=== PATIENT | female | born 1935 | race Caucasian/White ===

== ENCOUNTER 2019-12-01 09:14 | Inpatient (IN) | payer MEDICARE, SELFPAY ==
[2019-12-01] VITALS (14 sets, daily range): BP systolic 148–167; BP diastolic 87–112; PULSE 70–122; RESP 16–24; TEMP 36.4–36.8; O2SAT 87–98; BMI 23.5
--- NOTE | 2019-12-01 09:37 | CT_ITS ---
WS: [id number] CT HEAD NONCONTRAST HISTORY: AMS TECHNIQUE: Contiguous axial imaging performed through the brain in 2.5 mm imaging. Bone and soft tiss ue windows. Sagittal and coronal reformats reviewed. All CT scans at [facility] use at le ast one of these dose optimization techniques: automated exposure control; mA and/or kV adjustment pe r patient size (includes targeted exams where dose is matched to clinical indication); or iterative r econstruction. DLP: 566.59 mGy.cm COMPARISON: None available. No acute intracranial hemorrhage, midline shift or mass effect. There is a partially calcified mass in the posterior fossa. Mass measures 1.3 x 0.8 cm and is along t he inferior fourth ventricle abutting the medulla and the inferior cerebellum. There is moderate dila tation of the ventricular system which is probably due to this partially obstructing mass. Ventricles: Ventricles are dilated. Bilateral temporal lobe dilatation. Fourth ventricle and third v entricle are prominent. Paranasal sinuses: As visualized are clear. Mastoid air cells: Well pneumatized. Calvarium and scalp: Skull is intact with no soft tissue edema or swelling. CT/CT head wo con* [id number] IMPRESSION: 1. 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 Mass measures 1.3 x 0.8 cm. Differential includes metastasis, hemangioblastoma and astrocytoma. 2. Mild atrophy and chronic ischemic disease.
--- NOTE | 2019-12-01 09:37 | XR_ITS ---
WS: [id number] Portable AP upright chest, 12/01/2019 Clinical Data: chest pain Comparison: None. Findings: There is a possible cavitary lesion in the midportion of the right lung. The left lung is c lear. The heart is normal. The pulmonary vascularity is increased. No pneumonia or pneumothorax is se en. The aortic arch and descending aorta are tortuous. There are monitor leads on the chest wall. XR/XR chest 1V portable [id number] Impression: 1. Possible cavitary lesion in the right upper lobe which could represent a pne umatocele or possible lung abscess. 2. Recommend repeat PA and lateral chest. 3. Atherosclerosis.
--- NOTE | 2019-12-01 09:38 | ECG_ITS ---
Measurements Intervals [place] Rate: 116 P: 69 CT: 171 QRS: -2 QRSD: 93 T: 29 QT: 381 QTc: 529 SINUS TACHYCARDIA POSSIBLE LEFT ATRIAL ENLARGEMENT [-0.1mV P WAVE IN V1/V2] MODERATE ST DEPRESSION [0.05+ mV ST DEPRESSION] INTERPRETATION BASED ON A DEFAULT AGE OF 40 YEARS No previous ECG available for comparison Electronically Signed On 12-01-2019 20:56:59 CDT by Nilo Ladd M.D. [id number] f
--- NOTE | 2019-12-01 09:38 | W.ED.GENADLT ---
HPI - General Adult General: Chief complaint: Shortness of Breath/Dyspnea Stated complaint: SOB/ HTN Time Seen by Provider: 12/01/19 09:16 Source: patient and family Mode of arrival: EMS Limitations: no limitations History of Present Illness: HPI narrative: Patient is an 84-year-old female who presents to ED today via EMS for complaints of shortness of breath. EMS states they initially got a call for a possible stroke however upon arrival patient's NIH scale was 0. Upon their assessment they noted patient to be satting at 85% on room air and she was noted to be hypertensive. Upon arrival patient tells me she has no past medical history-admittedly states she has not been to the doctor in over a decade. She takes no medications. She seems to be alert and oriented. During physical examination and after removing patient's clothing her perineum is extremely unhygienic and covered in maggots. 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 After speaking to the son whom patient resides with, he tells me that patient is normally ambulatory and can complete her own ADLs however over the past 2 to 3 weeks she has became increasingly weak, altered, often refuses to bathe, eat, drink, and is now defecating and urinating on herself frequently. Patient is her own guardian. Onset (ago): week(s) Associated symptoms: Reports dyspnea; Deny chest pain, headache(s), nausea, rash, palpitations, syncope or vomiting Review of Systems Const: Denies: fever(s), chills or body aches Eyes: Denies: change in vision, blurry vision, photophobia or seeing flashes ENMT: Denies: throat pain, enlarged tonsils or odynophagia Card: Denies: chest pain, palpitations, irregular heart rhythm, edema, lightheadedness, syncope or pre-syncope Resp: Reports: dyspnea; Denies: productive cough, non-productive cough or chest congestion GI: Denies: abdominal pain, nausea, vomiting or diarrhea : Denies: flank pain, difficulty voiding, dysuria, urinary frequency or urinary urgency Musc: Denies: neck pain or back pain Skin/Breast: Denies: rash Neuro: Denies: headache(s), numbness in extremities, weakness in extremities or sensory changes PFS ED PFSH: Social History Smoking and tobacco status: former smoker Physical Exam Const: COMMON NORMALS: patient oriented x3 and alert GENERAL APPEARANCE: cooperative NUTRITIONAL APPEARANCE: cachectic ORIENTATION/CONSCIOUSNESS: Yes awake, Yes oriented to person, Yes oriented to place and Yes oriented to time OTHER: poor hygiene; patient has fecal material and maggots noted on her HENMT: COMMON NORMALS: normocephalic and atraumatic HEAD & SCALP: normocephalic and atraumatic Chest: COMMONS NORMALS: normal inspection of the chest and normal palpation of entire chest wall Resp: COMMON NORMALS: normal respiratory effort and clear to auscultation bilaterally AUSCULTATION: clear to auscultation bilaterally Cardio: COMMON NORMALS: regular rate and regular rhythm RATE: regular rate RHYTHM: regular rhythm GI: COMMON NORMALS: Normal to inspection, nondistended, normoactive bowel sounds present, Soft to palpation, non-tender, No hepatosplenomegaly present and no masses PALPATION: Yes Soft to palpation and Yes No hepatosplenomegaly present : OTHER: uterine prolapse; fecal material and maggots noted throughout perineum Back/Pelvis: OTHER: skin breakdown and stage I decub ulcer present to sacral region Extremity: COMMON NORMALS: normal to inspection Neuro: COMMON NORMALS: patient oriented x3 SENSORIUM/ORIENTATION: Yes alert, Yes oriented to person, Yes oriented to place and Yes oriented to time Skin: COMMON NORMALS: no rashes or lesions noted GENERAL SKIN EXAM: no rashes or lesions noted Course ED course: RN alerted me that pt is complaining of L hip pain; will obtain imaging of hip/pelvis Consultations: Consultation #1: Dr. Carr (Dr. Campbell requested we speak to him regarding uterine prolapse) will consult on patient while in hospital. Vital Signs: Vital signs: Vital Signs Temperature 97.6 F 12/01/19 09:16 Pulse Rate 112 H 12/01/19 13:45 Respiratory Rate 18 12/01/19 13:45 Blood Pressure 153/94 12/01/19 13:45 Pulse Oximetry 93 12/01/19 13:45 MDM - General Adult MDM Narrative: Medical decision making narrative: Patient has been discussed with Dr. Ahumada who agrees with evaluation from the ED and agrees with plan for admission. She is uroseptic from UTI with multi organ involvement. She has been given fluids/IV abx here. Case management will work with her and family for plan following discharge from hospital as pt is her own guardian and does not have medicaid/medicare. Dr. Ahumada and I have spoken to Dr. Campbell who will admit patient. I have consulted with Dr. Carr for evaluation of her uterine prolapse. Lab Data: Labs: Lab Results 12/01/19 12/01/19 12/01/19 Range/Units 09:42 10:07 10:07 WBC 18.1 H (4.0-10.0) 10^3/ uL RBC 5.75 H (4.1-5.3) 10^6/u L Hgb 18.2 H (11.5-15.3) g/dL Hct 55.9 H (37.0-47.0) % MCV 97.2 (81-99) fL MCH 31.7 (28.0-34.0) pg MCHC 32.6 (30.0-36.0) g/dL RDW 15.2 H (12.1-15.1) % Plt Count 233 (130-400) 10^3/c mm MPV 11.4 H (7.4-10.4) fL Neut % (Auto) 87.6 % Lymph % (Auto) 4.8 % [place] % (Auto) 6.6 % Eos % (Auto) 0.1 % Baso % (Auto) 0.3 % Neut # (Auto) 15.8 H (1.8-7.7) 10^3/u L Lymph # (Auto) 0.9 (0.8-4.8) 10^3/u L [place] # (Auto) 1.2 H (0.2-0.9) 10^3/u L Eos # (Auto) 0.0 (0.0-0.8) 10^3/u L Baso # (Auto) 0.1 (0.0-0.1) 10^3/u L Nucleated RBC % (a uto) 0 % Nucleated RBCs # 0.0 /100WBC Specimen Type Arterial Sample Site Brachial, left ABG pH 7.50 H (7.35-7.45) ABG pCO2 30.1 L (35-45) mmHg ABG pO2 73.6 L (80.0-100.0) mmH g ABG HCO3 23.3 (22-26) mmol/L ABG O2 Saturation 95.6 ABG Base Excess 1.3 (-2.0-2.0) mmol/ L Nicholas Test Pos A-a O2 Gradient 87.1 H (5-10) mmHg Hematocrit 55.0 H (37-47) % Hgb O2 Saturation 94.3 L (95-100) % Carboxyhemoglobin 0.8 (0.4-20.1) %THgb Methemoglobin 0.6 (0.4-1.5) % Total Hemoglobin 17.9 H (12-16) g/dL Sodium 142.0 140 (131-143) mmol/L Potassium 3.7 3.6 (3.5-5.0) mmol/L Glucose 128.0 H 130 H (70-115) mg/dL Ionized Calcium 1.5 H (1.1-1.4) mmol/L O2 Delivery Device Nc O2 Liters/Min 2.0 % FiO2 28.0 % Campaign Management Specialist ID caak Chloride 98 (98-107) mmol/L Carbon Dioxide 25 (22-29) mmol/L Anion Gap 20.6 H (5-19) BUN 44 H (8-23) mg/dL Creatinine 0.7 (0.5-0.9) mg/dL GFR Calculation Fighter Pilot Calculated Osmolal ity 290 (285-295) mOsm/k g Lactate (0.5-2.2) mmol/L Calcium 12.7 H (8.5-10.5) mg/dL Magnesium 2.6 H (1.7-2.3) mg/dL Total Bilirubin 1.7 H (0.15-1.2) mg/dL AST 18 (0-32) U/L ALT 8 (0-33) U/L Alkaline Phosphata se 128 H (35-105) IU/L Creatine Kinase 100 (26-192) U/L Troponin T Baselin e (0-10) ng/L Troponin T 120 Min [place] (0-10) ng/L Delta Troponin T (0-10) ABS# Total Protein 8.2 (6.6-8.7) g/dL Albumin 4.0 (3.5-5.2) g/dL Globulin 4.2 (1.3-4.6) g/dL Urine Color (Yellow) Urine Appearance (CLEAR) Urine pH (5-7) Ur Specific Gravit y (1.005-1.030) Urine Protein (Negative) Urine Glucose (UA) (Normal) Urine Ketones (Negative) Urine Blood (Negative) Urine Nitrate (Negative) Urine Bilirubin (NEGATIVE) Urine Urobilinogen (Negative) mg/dL Ur Leukocyte Lucinda ase (Negative) Urine RBC (0-2) /hpf Urine WBC (0-5) /hpf Ur Squamous Epith Cells (0-5) Urine Bacteria (NONE) Urine Opiates Scre en (Negative) ng/mL Ur Barbiturates Sc reen (Negative) ng/mL Ur Phencyclidine S crn (Negative) ng/mL Ur Amphetamines Sc reen (Negative) ng/mL U Benzodiazepines Scrn (Negative) ng/mL Urine Cocaine Scre en (Negative) ng/mL U Marijuana (THC) Screen (Negative) ng/mL 12/01/19 12/01/19 12/01/19 Range/Units 10:07 10:07 12:27 WBC (4.0-10.0) 10^3/ uL RBC (4.1-5.3) 10^6/u L Hgb (11.5-15.3) g/dL Hct (37.0-47.0) % MCV (81-99) fL MCH (28.0-34.0) pg MCHC (30.0-36.0) g/dL RDW (12.1-15.1) % Plt Count (130-400) 10^3/c mm MPV (7.4-10.4) fL Neut % (Auto) % Lymph % (Auto) % [place] % (Auto) % Eos % (Auto) % Baso % (Auto) % Neut # (Auto) (1.8-7.7) 10^3/u L Lymph # (Auto) (0.8-4.8) 10^3/u L [place] # (Auto) (0.2-0.9) 10^3/u L Eos # (Auto) (0.0-0.8) 10^3/u L Baso # (Auto) (0.0-0.1) 10^3/u L Nucleated RBC % (a uto) % Nucleated RBCs # /100WBC Specimen Type Sample Site ABG pH (7.35-7.45) ABG pCO2 (35-45) mmHg ABG pO2 (80.0-100.0) mmH g ABG HCO3 (22-26) mmol/L ABG O2 Saturation ABG Base Excess (-2.0-2.0) mmol/ L Nicholas Test A-a O2 Gradient (5-10) mmHg Hematocrit (37-47) % Hgb O2 Saturation (95-100) % Carboxyhemoglobin (0.4-20.1) %THgb Methemoglobin (0.4-1.5) % Total Hemoglobin (12-16) g/dL Sodium (131-143) mmol/L Potassium (3.5-5.0) mmol/L Glucose (70-115) mg/dL Ionized Calcium (1.1-1.4) mmol/L O2 Delivery Device O2 Liters/Min % FiO2 % Campaign Management Specialist ID Chloride (98-107) mmol/L Carbon Dioxide (22-29) mmol/L Anion Gap (5-19) BUN (8-23) mg/dL Creatinine (0.5-0.9) mg/dL GFR Calculation Calculated Osmolal ity (285-295) mOsm/k g Lactate 2.6 H (0.5-2.2) mmol/L Calcium (8.5-10.5) mg/dL Magnesium (1.7-2.3) mg/dL Total Bilirubin (0.15-1.2) mg/dL AST (0-32) U/L ALT (0-33) U/L Alkaline Phosphata se (35-105) IU/L Creatine Kinase (26-192) U/L Troponin T Baselin e 35 H (0-10) ng/L Troponin T 120 Min [place] 34.88 H (0-10) ng/L Delta Troponin T -0.12 L (0-10) ABS# Total Protein (6.6-8.7) g/dL Albumin (3.5-5.2) g/dL Globulin (1.3-4.6) g/dL Urine Color (Yellow) Urine Appearance (CLEAR) Urine pH (5-7) Ur Specific Gravit y (1.005-1.030) Urine Protein (Negative) Urine Glucose (UA) (Normal) Urine Ketones (Negative) Urine Blood (Negative) Urine Nitrate (Negative) Urine Bilirubin (NEGATIVE) Urine Urobilinogen (Negative) mg/dL Ur Leukocyte Lucinda ase (Negative) Urine RBC (0-2) /hpf Urine WBC (0-5) /hpf Ur Squamous Epith Cells (0-5) Urine Bacteria (NONE) Urine Opiates Scre en (Negative) ng/mL Ur Barbiturates Sc reen (Negative) ng/mL Ur Phencyclidine S crn (Negative) ng/mL Ur Amphetamines Sc reen (Negative) ng/mL U Benzodiazepines Scrn (Negative) ng/mL Urine Cocaine Scre en (Negative) ng/mL U Marijuana (THC) Screen (Negative) ng/mL 12/01/19 12/01/19 Range/Units 12:42 12:42 WBC (4.0-10.0) 10^3/ uL RBC (4.1-5.3) 10^6/u L Hgb (11.5-15.3) g/dL Hct (37.0-47.0) % MCV (81-99) fL MCH (28.0-34.0) pg MCHC (30.0-36.0) g/dL RDW (12.1-15.1) % Plt Count (130-400) 10^3/c mm MPV (7.4-10.4) fL Neut % (Auto) % Lymph % (Auto) % [place] % (Auto) % Eos % (Auto) % Baso % (Auto) % Neut # (Auto) (1.8-7.7) 10^3/u L Lymph # (Auto) (0.8-4.8) 10^3/u L [place] # (Auto) (0.2-0.9) 10^3/u L Eos # (Auto) (0.0-0.8) 10^3/u L Baso # (Auto) (0.0-0.1) 10^3/u L Nucleated RBC % (a uto) % Nucleated RBCs # /100WBC Specimen Type Sample Site ABG pH (7.35-7.45) ABG pCO2 (35-45) mmHg ABG pO2 (80.0-100.0) mmH g ABG HCO3 (22-26) mmol/L ABG O2 Saturation ABG Base Excess (-2.0-2.0) mmol/ L Nicholas Test A-a O2 Gradient (5-10) mmHg Hematocrit (37-47) % Hgb O2 Saturation (95-100) % Carboxyhemoglobin (0.4-20.1) %THgb Methemoglobin (0.4-1.5) % Total Hemoglobin (12-16) g/dL Sodium (131-143) mmol/L Potassium (3.5-5.0) mmol/L Glucose (70-115) mg/dL Ionized Calcium (1.1-1.4) mmol/L O2 Delivery Device O2 Liters/Min % FiO2 % Campaign Management Specialist ID Chloride (98-107) mmol/L Carbon Dioxide (22-29) mmol/L Anion Gap (5-19) BUN (8-23) mg/dL Creatinine (0.5-0.9) mg/dL GFR Calculation Calculated Osmolal ity (285-295) mOsm/k g Lactate (0.5-2.2) mmol/L Calcium (8.5-10.5) mg/dL Magnesium (1.7-2.3) mg/dL Total Bilirubin (0.15-1.2) mg/dL AST (0-32) U/L ALT (0-33) U/L Alkaline Phosphata se (35-105) IU/L Creatine Kinase (26-192) U/L Troponin T Baselin e (0-10) ng/L Troponin T 120 Min [place] (0-10) ng/L Delta Troponin T (0-10) ABS# Total Protein (6.6-8.7) g/dL Albumin (3.5-5.2) g/dL Globulin (1.3-4.6) g/dL Urine Color Yellow (Yellow) Urine Appearance Cloudy (CLEAR) Urine pH 5 (5-7) Ur Specific Gravit y 1.025 (1.005-1.030) Urine Protein Neg (Negative) Urine Glucose (UA) Norm (Normal) Urine Ketones 1+ H (Negative) Urine Blood 3+ H (Negative) Urine Nitrate Negative (Negative) Urine Bilirubin 1+ H (NEGATIVE) Urine Urobilinogen 1 H (Negative) mg/dL Ur Leukocyte Lucinda ase 2+ H (Negative) Urine RBC 10-15 H (0-2) /hpf Urine WBC 40-55 H (0-5) /hpf Ur Squamous Epith Cells 0-4 H (0-5) Urine Bacteria 3+ H (NONE) Urine Opiates Scre en Negative (Negative) ng/mL Ur Barbiturates Sc reen Negative (Negative) ng/mL Ur Phencyclidine S crn Negative (Negative) ng/mL Ur Amphetamines Sc reen Negative (Negative) ng/mL U Benzodiazepines Scrn Negative (Negative) ng/mL Urine Cocaine Scre en Negative (Negative) ng/mL U Marijuana (THC) Screen Negative (Negative) ng/mL Imaging Data^: CXR: Radiologist's impression: [address] [address] XRay Report Signed Patient: Mirta Jj Unit #: [id number] : 1935 Age/Sex: 84 / F ADM Date: 12/01/19 Loc: ER Room/Bed: Attending Dr: Ordering Provider/Ordering MD: Lacy Venegas Date of Service: 12/01/19 Procedure(s): XR chest 2V* [id number] Accession Number(s): [id number] Report Number: [id number] WS: [id number] Chest 2 views, 12/01/2019, 1054 hours Clinical Data: repeat imaging per radiology Comparison: Portable chest, 12/01/2019, 0957 hours Findings: Repeat x-ray shows there is a cavitary lesion in the midportion of the right lung measuring 3.2 cm. It has a thin wall. This could represent a pneumatocele, a cavitary tumor, lung cyst, infectious cyst or less likely a lung abscess or metastatic lesion. The pulmonary vascularity is not increased. No pneumonia or pneumothorax is seen. Left lung is normal. The aortic arch and descending aorta show calcification and tortuosity. XR/XR chest 2V* 02261 Impression: 1. Cavitary lesion in midportion of right lung. 2. Atherosclerosis. Dictated By: Marie Walton MD Signed By: Marie Walton MD Signed Date/Time: 12/01/19 1107 DD/ 1103 L hip/pelvis XR: Radiologist's impression: [address] [address] XRay Report Signed Patient: Mirta Jj Unit #: [id number] : 1935 Age/Sex: 84 / F ADM Date: 12/01/19 Loc: ER Room/Bed: Attending Dr: Ordering Provider/Ordering MD: Lacy Venegas Date of Service: 12/01/19 Procedure(s): XR hip LT 2-3V wo/w pel* 96013 Accession Number(s): [id number] Report Number: [id number] WS: [id number] Left hip, AP and frog leg, AP pelvis, 12/01/2019 Clinical Data: pain Comparison: None. Findings: No fractures or dislocations are seen. The hip joint is intact. The soft tissues are not remarkable. The adjacent pelvis is normal. XR/XR hip LT 2-3V wo/w pel* [id number] Impression: Negative left hip and pelvis. Dictated By: Marie Walton MD Signed By: Marie Walton MD Signed Date/Time: 12/01/19 1310 DD/ 1309 CT Head: Radiologist's impression: [place] [address] CT Scan Report Signed Patient: Mirta Jj Unit #: [id number] : 1935 Age/Sex: 84 / F ADM Date: 12/01/19 Loc: ER Room/Bed: Attending Dr: Ordering Provider/Ordering MD: Lacy Venegas Date of Service: 12/01/19 Procedure(s): CT head wo con* [id number] Accession Number(s): [id number] Report Number: [id number] WS: [id number] CT HEAD NONCONTRAST HISTORY: AMS TECHNIQUE: Contiguous axial imaging performed through the brain in 2.5 mm imaging. Bone and soft tissue windows. Sagittal and coronal reformats reviewed. All CT scans at [facility] use at least one of these dose optimization techniques: automated exposure control; mA and/or kV adjustment per patient size (includes targeted exams where dose is matched to clinical indication); or iterative reconstruction. DLP: 566.59 mGy.cm COMPARISON: None available. No acute intracranial hemorrhage, midline shift or mass effect. There is a partially calcified mass in the posterior fossa. Mass measures 1.3 x 0.8 cm and is along the inferior fourth ventricle abutting the medulla and the inferior cerebellum. There is moderate dilatation of the ventricular system which is probably due to this partially obstructing mass. Ventricles: Ventricles are dilated. Bilateral temporal lobe dilatation. Fourth ventricle and third ventricle are prominent. Paranasal sinuses: As visualized are clear. Mastoid air cells: Well pneumatized. Calvarium and scalp: Skull is intact with no soft tissue edema or swelling. CT/CT head wo con* [id number] IMPRESSION: 1. 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 Mass measures 1.3 x 0.8 cm. Differential includes metastasis, hemangioblastoma and astrocytoma. 2. Mild atrophy and chronic ischemic disease. Dictated By: Irene Almaguer DO Signed By: Irene Almaguer DO Signed Date/Time: 12/01/19 1125 DD/ 1111 Discharge Plan Discharge Patient Disposition: Admitted As Inpatient Admit Provider: Kay Campbell Clinical Impression: Acute cystitis with hematuria, Cavitary lesion of lung, Infestation by maggots, Uterine prolapse, Hypoxia Sepsis Qualifiers: Sepsis type: sepsis due to unspecified organism Sepsis acute organ dysfunction status: with acute organ dysfunction Severe sepsis acute organ dysfunction type: acute renal failure Acute renal failure type: unspecified Condition: Stable Coding Level of Care Code ED Piling Cutter for Chg Fwd Exam Comprehensive
[2019-12-01 09:54] LABS: ABG PCO2 30.1 mmHg (35-45); Alveolar-Arterial Oxygen Gradi 87.1 mmHg (5-10); Base Excess ABG 1.3 mmol/L (-2.0-2.0); Blood Gas Allen Test Pos; Blood Gas Sample Site Brachial, left; Blood Gas Sample Type Arterial; Carboxyhemoglobin 0.8 %THgb (0.4-20.1); HCO3 ABG 23.3 mmol/L (22-26); HGB O2 Sat 94.3 % (95-100); Ionized Calcium Level - ABG 1.5 mmol/L (1.1-1.4); Methemoglobin 0.6 % (0.4-1.5); Oxygen Device NC; Oxygen Saturation ABG 95.6; PO2 ABG 73.6 mmHg (80.0-100.0); Potassium Level - ABG 3.7 mmol/L (3.5-5.0); Total Hemoglobin 17.9 g/dL (12-16)
[2019-12-01 10:21] LABS: Basophils # 0.1 10^3/uL (0.0-0.1); Basophils % 0.3 %; Eosinophils % 0.1 %; Hematocrit 55.9 % (37.0-47.0); Hemoglobin 18.2 g/dL (11.5-15.3); Lymphocytes # 0.9 10^3/uL (0.8-4.8); Lymphocytes % 4.8 %; Mean Corpuscular HGB Conc 32.6 g/dL (30.0-36.0); Mean Corpuscular Hemoglobin 31.7 pg (28.0-34.0); Mean Corpuscular Volume 97.2 fL (81-99); Mean Platelet Volume 11.4 fL (7.4-10.4); Monocytes # 1.2 10^3/uL (0.2-0.9); Monocytes % 6.6 %; Neutrophils # 15.8 10^3/uL (1.8-7.7); Neutrophils % 87.6 %; Nucleated Red Blood Cells % 0 %; Platelet Count 233 10^3/cmm (130-400); Red Blood Count 5.75 10^6/uL (4.1-5.3); Red Cell Distribution Width 15.2 % (12.1-15.1); White Blood Count 18.1 10^3/uL (4.0-10.0)
--- NOTE | 2019-12-01 10:37 | XR_ITS ---
WS: [id number] Chest 2 views, 12/01/2019, 1054 hours Clinical Data: repeat imaging per radiology Comparison: Portable chest, 12/01/2019, 0957 hours Findings: Repeat x-ray shows there is a cavitary lesion in the midportion of the right lung measurin g 3.2 cm. It has a thin wall. This could represent a pneumatocele, a cavitary tumor, lung cyst, infec tious cyst or less likely a lung abscess or metastatic lesion. The pulmonary vascularity is not incre ased. No pneumonia or pneumothorax is seen. Left lung is normal. The aortic arch and descending aorta show calcification and tortuosity. XR/XR chest 2V* [id number] Impression: 1. Cavitary lesion in midportion of right lung. 2. Atherosclerosis.
[2019-12-01 10:40] LABS: Alanine Aminotransferase 8 U/L (0-33); Alkaline Phosphatase 128 IU/L (35-105); Anion Gap 20.6 (5-19); Aspartate Amino Transferase 18 U/L (0-32); Blood Urea Nitrogen 44 mg/dL (8-23); Carbon Dioxide 25 mmol/L (22-29); Chloride 98 mmol/L (98-107); Creatine Phosphokinase 100 U/L (26-192); Globulin 4.2 g/dL (1.3-4.6); Glucose 130 mg/dL (65-115); Magnesium 2.6 mg/dL (1.7-2.3); Osmolality Calculated 290 mOsm/kg (285-295); Potassium 3.6 mmol/L (3.5-5.1); Sodium 140 mmol/L (136-145); Total Bilirubin 1.7 mg/dL (0.15-1.2); Total Protein 8.2 g/dL (6.6-8.7)
[2019-12-01 10:42] LABS: Lactate (Lactic Acid level) 2.6 mmol/L (0.5-2.2); Troponin(5th) Baseline 35 ng/L (0-10)
--- NOTE | 2019-12-01 10:52 | DCPLANNER ---
partnership manager was asked to speak with patients family about medicaid and medicare. partnership manager spoke with Xi, daughter -in law [phone] - who states that patient does not have insurance at this time. partnership manager spoke with patients son, he stated that high risk case manager would need to speak with Xi. partnership manager also asked patient if high risk case manager could speak with Xi, and patient stated that high risk case manager could speak with Xi about her care. partnership manager spoke with Xi, she stated that she does not know how much money that patient received a month. partnership manager asked patient and her son how much money patient receives, patient and son, did not know the information. partnership manager gave daughter the information for patient to call for medicare with Social Security. partnership manager called [employer], Dar Keen, to speak with patient about medicaid. partnership manager was told that if patient will tell Dar that it is ok to speak with her daughter in law that he can speak with her about patients medicaid application. partnership manager transferred call into patients room, patient spoke with Dar and patient stated that he could speak with Xi.
[2019-12-01 11:16] LABS: Calcium 12.7 mg/dL (8.5-10.5)
--- NOTE | 2019-12-01 11:38 | ECG_ITS ---
Measurements Intervals [place] Rate: 114 P: 58 SD: 148 QRS: 27 QRSD: 85 T: 23 QT: 377 QTc: 521 SINUS TACHYCARDIA POSSIBLE LEFT ATRIAL ENLARGEMENT [-0.1mV P WAVE IN V1/V2] MODERATE ST DEPRESSION [0.05+ mV ST DEPRESSION] No previous ECG available for comparison Electronically Signed On 12-01-2019 21:05:48 CDT by Nilo Ladd M.D. [id number] f
[2019-12-01] MEDS: sodium chloride 0.9% 1,000 ML 999 ML IV (11:54)
--- NOTE | 2019-12-01 12:46 | XR_ITS ---
WS: [id number] Left hip, AP and frog leg, AP pelvis, 12/01/2019 Clinical Data: pain Comparison: None. Findings: No fractures or dislocations are seen. The hip joint is intact. The soft tissues are not remarkable. The adjacent pelvis is normal. XR/XR hip LT 2-3V wo/w pel* [id number] Impression: Negative left hip and pelvis.
[2019-12-01] MEDS: piperacillin-tazobactam 3.375 GM in sodium chloride 0.9% (plus) 50 ML IV ×2 (12:55→18:40)
[2019-12-01 12:56] LABS: Troponin 5 2HR 34.88 ng/L (0-10)
[2019-12-01 12:57] LABS: Troponin 5 2HR Delta -0.12 ABS# (0-10)
[2019-12-01 13:03] LABS: Glucose Urine UA Norm (Normal); Protein Urine Neg (Negative); Specific Gravity, Urine 1.025 (1.005-1.030); Urine Appearance Cloudy (CLEAR); Urine Color Yellow (Yellow); pH Urine 5 (5-7)
[2019-12-01 13:04] LABS: Add Urine Microscopic? YES; Amphetamines Screen Urine Negative (Negative); Barbiturates Screen Urine Negative (Negative); Benzodiazepines Screen Urine Negative (Negative); Bilirubin Urine 1+ (NEGATIVE); Blood Urine 3+ (Negative); Cocaine Screen Urine Negative (Negative); Ketones Urine 1+ (Negative); Leukocyte Esterase Urine 2+ (Negative); Nitrate Urine Negative (Negative); Opiate Screen Urine Negative (Negative); PCP Screen Urine Negative (Negative); THC Screen Urine Negative (Negative); Urobilinogen Urine 1 mg/dL (Negative)
[2019-12-01 13:06] LABS: Bacteria Urine 3+; Squamous Epithelial Cell Urine 0-4 (0-5); WBC Urine 40-55 /hpf (0-5)
[2019-12-01 13:07] LABS: Add Urine Culture? Yes
[2019-12-01] MEDS: sodium chloride 0.9% 1,000 ML 100 ML IV (14:43)
--- NOTE | 2019-12-01 14:46 | PM.HP ---
Providers/Chief Complaint Admitting Physician: Kay Campbell MD Primary Care Provider: None Chief Complaint: SOB/ HTN History of Present Illness Mirta Jj is a 84 year old female with no significant past medical history presents from home via ambulance accompanied by her son for evaluation of shortness of breath and altered mental status. There is initial concern for possible stroke but per EMS assessment NIH scale was 0. Patient was noted to be saturating at 85% on room air and quite hypertensive. Supplemental oxygen was applied and she was transported to the ER for further evaluation. She was extremely disheveled, unkempt, soiled, covered in maggots. She appears quite confused though is awake during my bedside assessment in the ER. Son is also present at bedside and appears to have some kind of underlying cognitive impairment as history taking is extremely challenging. Patient has reportedly not been seen by healthcare provider for about 20 years. She is not on any medications routinely. Son states that she has had difficulty ambulating, performing personal hygiene, poor appetite for approximately 1 week. He denies any recent falls and prior to this past week she was ambulating with a walker. He is unable to tell me much more in terms of patient's history. I was able to speak to patient's granddaughter Chaya in the waiting area who provided some information about patient's social situation. It seems that family members have been concerned about patient's living environment for quite some time though they do not live in the local area. They last saw the patient approximately 4 weeks ago though has appeared to be cluttered patient was alert, oriented, able to engage in conversation appropriately. Granddaughter does mention that they did not see patient ambulating so are unsure of her functional capacity. Patient is uninsured and family will start working on this process as well as alternative disposition including potentially having patient live with 1 of her other children versus assisted living. Further work-up in the ER indicates leukocytosis with a white count of 18.1, hemoglobin of 18.2, BUN of 44, creatinine of 0.7, blood sugar of 130, lactate of 2.6, magnesium of 2.6, T bili of 1.7, urinalysis indicative of infection, troponins with negative delta, negative UDS. ABG shows mild hypoxia and she is on supplemental oxygen currently. CT scan of the head shows moderate hydrocephalus with a partially calcified mass in the posterior fossa. Chest x-ray shows a right upper lobe cavitary lesion. She has received a dose of Zosyn and 1 L normal saline bolus. Stinson catheter has been placed. Patient reassessed on the floor at 2030 remains disoriented, is not quite hypertensive and mildly tachycardic, afebrile. We will give a dose of Bumex as a trial of diuretics as well as low-dose metoprolol. Noted significant d-dimer elevation so will order CTA PE in addition to venous duplex previously ordered to evaluate for VTE. Will escalate anticoagulation to therapeutic dose. Review of Systems General: Reports: Other (very limited due to AMS, minimal collateral info) Const: Reports: change in appetite (decreased) and fatigue ENMT: Reports: dry mouth Card: Reports: edema (bilateral LEs) and swelling of feet/ankles : Reports: prolapse symptoms Neuro: Reports: difficulty walking and confusion Medications/Allergies Home Medications Medication Instructions Recorded Confirmed Last Taken Type No Known Home Medications 12/01/19 12/01/19 Unknown History Allergies Allergy/AdvReac Type Severity Reaction Status Date / Time No Known Allergies Allergy Verified 12/01/19 09:38 PFSH Acute PFSH: Medical History (Updated 12/01/19 @ 19:53 by Kay Campbell MD) Uterine prolapse Family History (Updated 12/01/19 @ 19:41 by Kay Campbell MD) Other Hypertension Denies family history of Diabetes Social History (Updated 12/01/19 @ 19:42 by Kay Campbell MD) Smoking and tobacco status: former smoker Quit status (tobacco): has quit using tobacco Former quit date comment: 15 yrs ago Alcohol intake: current Alcohol intake frequency: 0-2 Drinks per Day Alcohol type: wine Alcohol use comment: 1 glass of wine daily Substance/Drug Use: never Household members: children Housing: House Marital status: / Current occupational status: retired Vitals/I&O/Wt Last Vital Signs Temp 97.6 F 12/01/19 09:16 Pulse 112 H 12/01/19 13:45 Resp 18 12/01/19 13:45 BP 153/94 12/01/19 13:45 Pulse Ox 93 12/01/19 13:45 Weight last 48 hrs Weight 68.039 kg Physical Exam Const: COMMON NORMALS: no acute distress and alert GENERAL APPEARANCE: cooperative, comfortable, disheveled, frail appearing and appears older than stated age ORIENTATION/CONSCIOUSNESS: Yes awake, Yes oriented to place and Yes confused HENMT: COMMON NORMALS: normocephalic, atraumatic and hearing grossly normal bilaterally HEAD & SCALP: normocephalic and atraumatic MOUTH: moist mucous membranes abnormal Details: cracked and malodorous breath TEETH & GINGIVA: Yes dentures Eye: COMMON NORMALS: Equal, round and reactive pupils present, EOMs intact bilaterally and conjunctivae normal CONJUNCTIVA: Yes conjunctivae normal PUPIL: Yes Equal, round and reactive pupils present Neck/C-Spine: COMMON NORMALS: full ROM GENERAL: Yes normal visual inspection and Yes trachea midline Chest: CHEST: Yes Symmetrical chest wall rise Resp: COMMON NORMALS: normal respiratory effort, No retractions, No use of accessory muscles and clear to auscultation bilaterally EFFORT & INSPECTION: Yes able to speak in complete sentences, Yes symmetric chest movement and Yes tachypneic AUSCULTATION: clear to auscultation bilaterally OTHER: -on 3 L NC Cardio: COMMON NORMALS: regular rhythm, S1 normal heart sound present, S2 normal heart sound present and No murmurs present (Cardio) RATE: tachycardic RHYTHM: regular rhythm HEART SOUNDS: S1 normal heart sound present and S2 normal heart sound present GI: COMMON NORMALS: Normal to inspection, nondistended, normoactive bowel sounds present, Soft to palpation and non-tender PALPATION: Yes Soft to palpation RECTAL EXAM: visual inspection normal : BLADDER/KIDNEY EXAM: Yes catheter in place Catheter type (Female): urethral PELVIC SUPPORT: Uterine prolapse: 3rd degree (total) Extremity: NARRATIVE EXTREMITY EXAM: -noted pitting edema of bilateral LEs including feet (at least 3+) Neuro: SENSORIUM/ORIENTATION: Yes alert, Yes oriented to place and Yes Orientation impaired SPEECH: speech normal OTHER: -due to altered mental status, unable to participate in full neuro exam Psych: COMMON NORMALS: cooperative, normal affect and speech normal SPEECH: Yes normal speech THOUGHT PROCESS: confused Skin: COMMON NORMALS: no rashes or lesions noted, no jaundice, no petechiae and no mottling NARRATIVE SKIN EXAM: -diffuse lesions, non-erythematous, non-pruritic, no open lesions GENERAL SKIN EXAM: no rashes or lesions noted NAILS: discolored Urinary Catheter Management^: Stinson: Cath Placed During This Visit: yes Urethral Indwelling: Yes Reason for Continuing Indwelling Catheter: Acute Urinary Retention or Obstruction Urinary Catheter Date of Insertion: 12/01/19 Urinary Catheter Time of Insertion: 13:00 Sepsis: Is patient septic: Yes Focused sepsis exam performed: Yes Date exam was performed: 12/01/19 Time exam was performed: 14:00 Data : 12/01/19 10:07 12/01/19 10:07 Micro: Microbiology 12/01/19 10:07 Blood Culture - Preliminary Blood SPECIMEN COLLECTED 12/01/19 10:13 Blood Culture - Preliminary Blood SPECIMEN COLLECTED A&P Assessment and plan (1) Acute cystitis with hematuria: -UA indicative of infection -associated sepsis as indicated by leukocytosis, tachycardia, tachypnea, lactate > 2 -f/u blood and urine cx -received Zosyn in ED, will continue this for now -IVF hydration -has Stinson catheter in place, assess daily for removal Status: Acute (2) Altered mental status: -likely secondary to complicated UTI as noted -fall precautions -re-orient as needed, 1:1 monitoring if needed -CT head with noted moderate hydrocephalus, partially calcified mass in posterior fossa including in medulla and inferior cerebellum in background of mild atrophy and chronic ischemic disease. May need further imaging of this including MRI. May be contributing to mental status change -baseline is unclear but per family is typically alert, conversant, oriented -will request ST evaluation for swallow evaluation and cognitive testing -D-dimer significantly elevated, will order CTA to r/o PE; will start on therapeutic AC until this is ruled out Status: Acute Qualifiers: Altered mental status type: delirium Qualified Code(s): R41.0 - Disorientation, unspecified (3) Sepsis: -as noted above -secondary to UTI -trend WBC -close monitoring of vital signs Status: Acute Qualifiers: Acute renal failure type: unspecified Sepsis acute organ dysfunction status: with acute organ dysfunction Sepsis type: sepsis due to unspecified organism Severe sepsis acute organ dysfunction type: acute renal failure Severe sepsis shock status: unspecified Qualified Code(s): A41.9 - Sepsis, unspecified organism; R65.20 - Severe sepsis without septic shock; N17.9 - Acute kidney failure, unspecified (4) Bilateral lower extremity edema: -significant LE edema part of which is likely due to poor nutrition status, need to r/o VTE and evaluate for CHF -Echo and venous duplex ordered -trial of diuresis, SEVERO argueta if possible, LE elevation -BNP-1660 Status: Acute (5) Cavitary lesion of lung: -noted on imaging; will need to discuss with family if wanting to pursue further workup for this -with current mental status, is unlikely to tolerate 2-view CXR Status: Acute (6) Hypoxia: -not oxygen dependent at baseline, denies underlying respiratory conditions -supplemental oxygen as needed -monitor respiratory status -ABG noted with mild hypoxia Status: Acute (7) Physical deconditioning: -unclear functional baseline -fall precautions -PT/OT evaluations once able to participate Status: Acute (8) Uterine prolapse: -total uterine prolapse on examination -[employer] consult by Dr. Carr appreciated Status: Acute (9) Infestation by maggots: -noted on presentation in ED, quite unkempt, disheveled and soiled -Per discussion with other family members they will work on alternative disposition as current home situation is unsuitable Status: Acute Additional A&P Information -Advanced age -Hypertensive though no prior hx of this; monitor vital signs, may need to add oral antihypertensives -DVT ppx with Lovenox -mechanical soft diet if tolerated -Dispo: family working on alternative living arrangements; spoke with MOMO Chaya Murray ([phone]) -Code status: FULL code Attestations Medical Necessity Statement*: Mirta Jj's hospital stay will require greater than 2 midnights for management of complicated UTI with associated sepsis, altered mental status, needs IV fluid hydration and IV antibiotics. Time Spent in Patient Care: Greater than 35 minutes (>than 50% of time spent in counselling and/or direct pt care on unit). Coding Level of Care Code Acute Production Administrative Assistant for g Fwd Diagnoses Acute cystitis with hematuria N30.01 Altered mental status R41.0 Altered mental status type: delirium Sepsis A41.9; R65.20; N17.9 Acute renal failure type: unspecified Sepsis acute organ dysfunction status: with acute organ dysfunction Sepsis type: sepsis due to unspecified organism Severe sepsis acute organ dysfunction type: acute renal failure Severe sepsis shock status: unspecified Bilateral lower extremity edema R60.0 Cavitary lesion of lung J98.4 Hypoxia R09.02 Physical deconditioning R53.81 Uterine prolapse N81.4 Infestation by maggots B87.9 Sepsis Event Note Evaluation Current stage of sepsis: sepsis Possible source: genitourinary Focused Exam Vital Signs Temp Pulse Pulse Resp BP BP Pulse Ox 12/01/19 19:30 98.3 F 114 H 24 H 150/110 94 12/01/19 19:29 98.3 F 114 H 24 H 150/110 98 12/01/19 18:27 115 H 95 12/01/19 16:02 97.6 F 70 22 H 167/87 95 12/01/19 15:57 97.6 F 70 22 H 167/87 95 12/01/19 15:00 112 H 20 H 163/107 94 12/01/19 13:45 112 H 18 153/94 93 12/01/19 13:30 118 H 16 153/106 91 12/01/19 13:15 110 H 18 154/101 92 12/01/19 13:00 113 H 18 148/98 93 12/01/19 12:45 122 H 18 158/112 91 12/01/19 12:34 116 H 18 158/105 92 12/01/19 09:16 97.6 F 110 H 22 H 166/104 87 L Respiratory exam: Present CTAB Cardiovascular exam: Present S1, S2 and tachycardia Date exam was performed: 12/01/19 Time exam was performed: 20:22 Problem List (1) Uterine prolapse: Status: Acute (2) Sepsis: Status: Acute (3) Acute cystitis with hematuria: Status: Acute (4) Cavitary lesion of lung: Status: Acute (5) Infestation by maggots: Status: Acute (6) Hypoxia: Status: Acute (7) Altered mental status: Status: Acute (8) Bilateral lower extremity edema: Status: Acute (9) Physical deconditioning: Status: Acute
--- NOTE | 2019-12-01 15:38 | ECG_ITS ---
Measurements Intervals [place] Rate: 116 P: 70 UT: 178 QRS: 28 QRSD: 93 T: 64 QT: 381 QTc: 529 SINUS TACHYCARDIA WITH OCCASIONAL VENTRICULAR PREMATURE COMPLEXES POSSIBLE LEFT ATRIAL ENLARGEMENT [-0.1mV P WAVE IN V1/V2] NONSPECIFIC ST & T-WAVE ABNORMALITY ABNORMAL RHYTHM ECG No previous ECG available for comparison Electronically Signed On 12-01-2019 21:02:28 CDT by Nilo Ladd M.D. [email or web address]
[2019-12-01 16:38] LABS: NT Pro B Type Natriuretic Pept 1660 pg/mL (0-450)
[2019-12-01 16:39] LABS: D Dimer >= 20.00 ug/mIFEU (0-0.59)
[2019-12-01] MEDS: multivitamin therapeutic Tablet 1 TAB PO (17:23)
[2019-12-01] MEDS: enoxaparin 40 mg/0.4 mL Syringe SUBCUT (17:23)
[2019-12-01] MEDS: dextrose 5%-sod chloride 0.9% 1,000 ML 75 ML IV (17:30)
[2019-12-01 17:51] LABS: Troponin 5 6HR 33.88 ng/L (0-10)
[2019-12-01 17:57] LABS: Troponin 5 6HR Delta -1.12 ng/L (0-12)
[2019-12-01] MEDS: metoprolol tartrate 25 mg Tablet PO (20:01)
[2019-12-01] MEDS: bumetanide 0.25 mg/mL SDV 10 mL 1 MG IV (20:02)
--- NOTE | 2019-12-01 20:27 | CTR_ITS ---
PROCEDURE INFORMATION: Exam: CT Angiography Chest With Contrast Exam date and time: 12/01/2019 9:30 PM Age: 84 years old Clinical indication: Shortness of breath; Patient HX: SOB dec o2 sats ble edema abn cxr; Additional info: Elevated d-dimer, SOB TECHNIQUE: Imaging protocol: Computed tomographic angiography of the chest with intravenous contrast. 3D rendering: MIP and/or 3D reconstructed images were created by the technologist. Radiation optimization: All CT scans at this facility use at least one of these dose optimization techniques: automated exposure control; mA and/or kV adjustment per patient size (includes targeted exams where dose is matched to clinical indication); or iterative reconstruction. Contrast material: OMNI 350; Contrast volume: 75 ml; Contrast route: 20G; COMPARISON: No relevant prior studies available. RADIATION DOSE METRICS: Total DLP: 398.72 mGy-cm FINDINGS: Pulmonary arteries: Examination is positive for pulmonary embolism/pulmonary arterial thrombus. Examination reveals occlusive deep venous thrombosis involving the superior segment of the right lower lobe with nonocclusive deep venous thrombosis extending into the segmental and subsegmental vessels of the remaining segments of the right lower lobe. Less significant involvement of the left lower lobe pulmonary arteries with occlusive thrombus involving the segmental vessel of the medial basal segment and less significant involvement of the remaining vessels. In sparing of the other lobes evident. No visible central pulmonary embolism/thrombus. Aorta: The thoracic aorta appears in mildly prominent but without intimal flap or dissection or definite evidence of fusiform aneurysmal dilatation. Moderately advanced arterial sclerotic disease. In in Lungs: In the superior segment of the right upper lobe is a large cavitary lesion dimensions 54 mm x 36 mm by 56 mm. Thick rim/rind. Surrounding mixed ground-glass and consolidated alveolar airspace disease. This could reflect infectious etiology of either bacterial, fungal, or mycobacterium infection although carcinoma is a differential consideration. Pleural space: Unremarkable. No pneumothorax. No pleural effusion. Heart: No evidence for right ventricular strain. Cardiomegaly. Left ventricular hypertrophy. Calcified mitral annulus. Coronary artery disease. No visible pericardial effusion. Lymph nodes: Right hilar lymphadenopathy. Kidneys and ureters: Limited assessment of the upper abdomen reveals evidence of moderate the severe left hydronephrosis. Bones/joints: Age-appropriate degenerative disease. Scoliosis. Soft tissues: Cachexia. CT/CT angio chest PE protcl [id number] IMPRESSION: 1. Examination is positive for pulmonary embolism/pulmonary arterial thrombus involving the bilateral lower lobes, right greater than left, as detailed in text above. 2. No evidence for right ventricular strain. 3. Large cavitary lesion superior segment right lower lobe. 4. Right hilar lymphadenopathy. 5. Left hydronephros in is. Radiation Dose CTDIVOL = (mGy): DLP = 398.72 (mGy-cm)
[2019-12-01] MEDS: enoxaparin 30 mg/0.3 mL Syringe SUBCUT (20:58)
[2019-12-01] MEDS: iohexol 350 mg/mL 100 mL Btl IV (22:00)
[2019-12-02] VITALS (8 sets, daily range): BP systolic 150–160; BP diastolic 9–99; PULSE 80–108; RESP 18–24; TEMP 36.2–37.2; O2SAT 94–96
[2019-12-02] MEDS: sodium chloride 0.9% 1,000 ML 100 ML IV ×2 (01:12→12:25)
[2019-12-02] MEDS: piperacillin-tazobactam 3.375 GM in sodium chloride 0.9% (plus) 50 ML IV ×3 (03:18→18:04)
[2019-12-02 05:19] LABS: Basophils % 0.2 %; Eosinophils % 0.2 %; Hematocrit 50.3 % (37.0-47.0); Hemoglobin 16.2 g/dL (11.5-15.3); Lymphocytes % 5.6 %; Mean Corpuscular HGB Conc 32.2 g/dL (30.0-36.0); Mean Corpuscular Hemoglobin 32.1 pg (28.0-34.0); Mean Corpuscular Volume 99.8 fL (81-99); Mean Platelet Volume 12.2 fL (7.4-10.4); Monocytes # 1.4 10^3/uL (0.2-0.9); Monocytes % 8.2 %; Neutrophils # 14.9 10^3/uL (1.8-7.7); Neutrophils % 85.2 %; Nucleated Red Blood Cells % 0 %; Platelet Count 188 10^3/cmm (130-400); Red Blood Count 5.04 10^6/uL (4.1-5.3); Red Cell Distribution Width 15.2 % (12.1-15.1); White Blood Count 17.5 10^3/uL (4.0-10.0)
[2019-12-02] MEDS: dextrose 5%-sod chloride 0.9% 1,000 ML 75 ML IV ×2 (05:25→18:03)
[2019-12-02 05:33] LABS: INR 1.23 (0.8-1.2)
[2019-12-02 05:48] LABS: Estmated Average Glucose 114; Hemoglobin A1C 5.6 % (4.0-6.0)
[2019-12-02 05:59] LABS: Folate Level 9.8 ng/mL (4.8-37.3)
[2019-12-02 06:05] LABS: 25 Hydroxy Vitamin D 13 ng/mL (30-100); Thyroid Stimulating Hormone 0.08 uIU/mL (0.27-4.20); Vitamin B12 392 pg/mL (232-1245)
--- NOTE | 2019-12-02 07:00 | USCV_ITS ---
Mirta Jj Age: 84 Gender: F : 1935 Exam Date: 12/02/2019 06:13 Ordering Phys: Kay Campbell MD Technologist: Anusha Arce Exam Location: [facility] [place] Indication: PT HAS BILATERAL PE'S HISTORY: Pt has PE PROCEDURES: The venous duplex Doppler examination of both lower extremities was performed in the standard fashion. The following venous structures were evaluated: common femoral vein, profunda vein, proximal portion of the greater saphenous vein, superficial femoral vein, and the popliteal vein. In addition, the posterior tibial and peroneal trunk were evaluated. Serial compression, augmentation maneuvers, and spectral Doppler flow evaluation were performed. FINDINGS: No DVT seen in Rt leg in any vessel examined. Lt leg is non compressible from Lt CFV to Lt FV to Lt POP and Lt Peroneal. The LT PTV does not have flow or compresses. The Lt Profunda does not compress. There is a larger Martinez's cyst in the Lt Pop fossa. 6.1 x 1.3 CONCLUSIONS 1. No evidence of DVT in the above-mentioned identifiable veins. 2. Large cystic lesion in the left popliteal fossa, measuring 6.1 x 1.3 cm, suggestive of a Martinez's cyst Dr Nilo Ladd MD [facility] (Electronically Signed) Final Date: 02 December 2019 17:32 S
--- NOTE | 2019-12-02 07:00 | USCV_ITS ---
Mirta Jj Age: 84 Gender: F : 1935 Exam Date: 12/02/2019 05:54 Ordering Phys: Kay Campbell MD Technologist: Anusha Arce Exam Location: [facility] [place] Indication: Bilateral PEs BP: 167 / 87 HR: 89 Rhythm: Sinus Technical Quality: Adequate MEASUREMENTS (Male / Female) Normal Values 2D ECHO LV Diastolic Diameter PLAX 4.0 cm 4.2 - 5.9 / 3.9 - 5.3 cm LV Systolic Diameter PLAX 2.5 cm LV Chamber Size 3.1 cm IVS Diastolic Thickness 0.9 cm 0.6 - 1.0 / 0.6 - 0.9 cm IVS Systolic Thickness 1.5 cm LVPW Diastolic Thickness 1.3 cm 0.6 - 1.0 / 0.6 - 0.9 cm LVPW Systolic Thickness 1.6 cm RV Chamber Size 3.2 cm LVOT Diameter 2.0 cm LV Ejection Fraction 2D Teich 67.4 % LV Ejection Fraction MOD 2C 51.3 % LV Ejection Fraction 2C AL 54.0 % LA Diameter 2.6 cm LA Width 3.0 cm LA Height 3.8 cm RA Width 3.6 cm RA Height 4.2 cm Aorta at Sinotubular Diameter 3.3 cm M-MODE LV Diastolic Diameter MM 3.8 cm 4.2 - 5.9 / 3.9 - 5.3 cm LV Systolic Diameter MM 2.7 cm LV Ejection Fraction MM Teich 57.2 % IVS Diastolic Thickness MM 0.9 cm 0.6 - 1.0 / 0.6 - 0.9 cm IVS Systolic Thickness MM 1.6 cm LVPW Diastolic Thickness MM 1.1 cm 0.6 - 1.0 / 0.6 - 0.9 cm LVPW Systolic Thickness MM 1.5 cm RV Diastolic Diameter MM 1.1 cm Aortic Annulus Diameter 3.5 cm LA Ao Ratio MM 0.7 DOPPLER AV Peak Velocity 102.0 cm/s LVOT Peak Velocity 96.0 cm/s AV Area Cont Eq vti 3.6 cm squared AV Area Cont Eq pk 3.0 cm squared MV Area PHT 6.9 cm squared Mitral E to A Ratio 0.5 MV E' Velocity 4.0 cm/s Mitral E to MV E' Ratio 7.8 Mitral E to LV E' Lateral Ratio 16.4 Mitral E to LV E' Septal Ratio 5.2 TR Peak Velocity 202.7 cm/s TR Peak Gradient 16.4 mmHg TR Mean Velocity 143.8 cm/s TR Mean Gradient 9.2 mmHg TR Velocity Time Integral 55.7 cm TV Peak E Velocity 77.0 cm/s Right Atrial Pressure 3.0 mmHg Pulmonary Artery Systolic Pressu 19.4 mmHg PV Peak Velocity 59.0 cm/s RV Acceleration Time 0.2 s RV Ejection Time 0.4 s RV AcT/ET 0.5 FINDINGS Left Ventricle Normal left ventricular size and systolic function, EF 57 %. No regional wall motion abnormalities. Grade I/IV diastolic dysfunction (abnormal relaxation filling pattern), normal to mildly elevated filling pressures. Right Ventricle The right ventricle is normal in size and function. Right Atrium The right atrium is normal in size. Left Atrium The left atrium is normal in size. Mitral Valve Thickened mitral valve. Mild mitral annular calcification. Aortic Valve Thickened aortic valve. Tricuspid Valve Trace tricuspid valve regurgitation. Estimated PA pressures is within normal limits. This could be an underestimation because of the poor Doppler signals. Pulmonic Valve Pulmonic valve not well visualized. Pericardium Normal pericardium without effusion. Aorta Normal ascending aorta dimension. CONCLUSIONS Normal left ventricular size and systolic function, EF 57 %. No regional wall motion abnormalities. Grade I/IV diastolic dysfunction (abnormal relaxation filling pattern), normal to mildly elevated filling pressures. Trace tricuspid valve regurgitation. Estimated PA pressures is within normal limits. This could be an underestimation because of the poor Doppler signals. Thickened mitral valve. Mild mitral annular calcification. Thickened aortic valve. There is no pericardial effusion. There are no intracardiac masses. No previous study is available for comparison. Dr Nilo Ladd MD FAC (Electronically Signed) Final Date: 02 December 2019 14:51 S
--- NOTE | 2019-12-02 09:04 | P.PN_ITS ---
Subjective Subjective: Interval history: Overnight was found to have bilateral lower lobe PE, worse on the right compared to the left, prelim venous duplex shows LLE DVT; already on therapeutic Lovenox. CT chest also shows evidence of large cavitary lesion in right upper lobe so we will broaden anti-infective spectrum to include coverage for possible fungal and mycobacterial infection. There is mention of possible moderate to severe left hydronephrosis though this is quite limited on CT chest so we will order CT abdomen and pelvis for further evaluation of this. Blood pressure has improved following administration of Bumex and she had a urine output of 1000 mL overnight. Large improvement in leukocytosis, noted continued polycythemia, stable renal function. Noted to have difficulty swallowing oral medications. Remains on 3 L nasal cannula, afebrile. Called and spoke to family, son Bryon Jj ([phone]) and xsoilqja-ub-rat Xi Jj ([phone]) and updated them on patient's clinical condition. Made decision to switch CODE STATUS to DNR/DNI. In light of clinical decompensation family is likely to make decision to transition to hospice. Medications: Reviewed: Yes Medication Review Details: Active Medications Generic Name Dose Route Start Last Admin Trade Name Freq PRN Reason Stop Dose Admin Acetaminophen 650 mg 12/01/19 13:51 Tylenol PO Q6H PRN Mild/Mod Pain Or Temp >/= 101 Enoxaparin Sodium 70 mg 12/02/19 09:00 Lovenox SUBCUT Q12H MARIJA Sodium Chloride 1,000 mls @ 100 m ls/hr 12/01/19 14:00 12/02/19 01:12 Sodium Chloride 0.9% IV 100 mls/hr .Q10H MARIJA Administration Dextrose/Sodium Ch loride 1,000 mls @ 75 ml s/hr 12/01/19 16:02 12/02/19 05:25 Dextrose 5%-Sod Chloride 0.9% IV 75 mls/hr .[id number] MARIJA Administration Piperacillin Sod/T azobactam 50 mls @ 12.5 mls /hr 12/01/19 19:00 12/02/19 03:18 Sod 3.375 gm/ So dium Chloride IV 12.5 mls/hr Q8H MARIJA Administration Protocol Lorazepam 1 mg 12/01/19 20:34 Ativan IVP Q8H PRN ANXIETY Metoprolol Tartrat e 25 mg 12/01/19 19:45 12/01/19 20:01 Lopressor PO 25 mg BID MARIJA Administration Morphine Sulfate 2 mg 12/01/19 13:51 Morphine IVP Q4H PRN SEVERE PAIN Ondansetron HCl 4 mg 12/01/19 13:51 Zofran IVP Q6H PRN NAUSEA AND VOMITI NG No Known Allergies Allergy (Verified 12/01/19 09:38) Vitals/I&O/Wt Last Vital Signs Temp 97.7 F 12/02/19 08:00 Pulse 89 12/02/19 08:19 Resp 18 12/02/19 08:00 BP 151/9 12/02/19 08:00 Pulse Ox 95 12/02/19 08:19 12/01/19 12/02/19 12/02/19 22:59 06:59 14:59 Intake Total 50 / 50 2133.75 / 2183.75 Output Total 1000 / 1000 Balance -950 / -950 2133.75 / 1183.75 Weight last 48 hrs Weight 55.99 kg Weight 68.039 kg Physical Exam Const: COMMON NORMALS: no acute distress GENERAL APPEARANCE: cooperative, comfortable, frail appearing and appears older than stated age ORIENTATION/CONSCIOUSNESS: Yes confused OTHER: -asleep, arousable for minimal periods of time HENMT: COMMON NORMALS: normocephalic, atraumatic and hearing grossly normal bilaterally HEAD & SCALP: normocephalic and atraumatic MOUTH: moist mucous membranes abnormal Details: cracked TEETH & GINGIVA: Yes dentures Eye: COMMON NORMALS: Equal, round and reactive pupils present, EOMs intact bilaterally and conjunctivae normal CONJUNCTIVA: Yes conjunctivae normal PUPIL: Yes Equal, round and reactive pupils present Neck/C-Spine: COMMON NORMALS: full ROM GENERAL: Yes normal visual inspection and Yes trachea midline Chest: CHEST: Yes Symmetrical chest wall rise Resp: COMMON NORMALS: normal respiratory effort, No retractions, No use of accessory muscles and clear to auscultation bilaterally EFFORT & INSPECTION: Yes able to speak in complete sentences, Yes symmetric chest movement and Yes tachypneic AUSCULTATION: clear to auscultation bilaterally OTHER: -on 3 L NC Cardio: COMMON NORMALS: regular rhythm, S1 normal heart sound present, S2 normal heart sound present and No murmurs present (Cardio) RATE: tachycardic RHYTHM: regular rhythm HEART SOUNDS: S1 normal heart sound present and S2 normal heart sound present GI: COMMON NORMALS: Normal to inspection, nondistended, normoactive bowel sounds present, Soft to palpation and non-tender PALPATION: Yes Soft to palpation RECTAL EXAM: visual inspection normal : BLADDER/KIDNEY EXAM: Yes catheter in place Catheter type (Female): urethral PELVIC SUPPORT: Uterine prolapse: 3rd degree (total) Extremity: NARRATIVE EXTREMITY EXAM: -noted pitting edema of bilateral LEs including feet (at least 2-3+) Neuro: SENSORIUM/ORIENTATION: Yes Orientation impaired SPEECH: Other neuro speech findings (speech is garbled and difficult to understand) OTHER: -due to altered mental status, unable to participate in full neuro exam Psych: THOUGHT PROCESS: confused Skin: COMMON NORMALS: no rashes or lesions noted, no jaundice, no petechiae and no mottling NARRATIVE SKIN EXAM: -diffuse lesions, non-erythematous, non- pruritic, no open lesions GENERAL SKIN EXAM: no rashes or lesions noted NAILS: discolored Urinary Catheter Management^: Stinson: Cath Placed During This Visit: yes Urethral Indwelling: Yes Reason for Continuing Indwelling Catheter: Acute Urinary Retention or Obstruction Urinary Catheter Date of Insertion: 12/01/19 Urinary Catheter Time of Insertion: 13:00 Data : 12/02/19 04:06 12/02/19 04:06 Micro: Microbiology 12/01/19 10:07 Blood Culture - Preliminary Blood SPECIMEN COLLECTED 12/01/19 10:13 Blood Culture - Preliminary Blood SPECIMEN COLLECTED A&P Assessment and plan (1) Pulmonary emboli: -Noted evidence of bilateral lower lobe pulmonary emboli, greater on the right compared to the left on CTA, no evidence of right ventricular heart strain -Is already on anticoagulation with therapeutic Lovenox -Echo: EF=57%, G1DD, no RWMA, trace TR -High suspicion for underlying malignancy given noted large right upper lobe cavitary lesion and previously noted partially calcified mass in posterior fossa on CT head Status: Acute Qualifiers: Acute cor pulmonale presence: without acute cor pulmonale Chronicity: acute Pulmonary embolism type: unspecified Qualified Code(s): I26.99 - Other pulmonary embolism without acute cor pulmonale (2) DVT (deep venous thrombosis): -venous duplex: non-compressible veins from CFV to femoral to popliteal and peroneal; large Martinez's cyst -Already on therapeutic anticoagulation with Lovenox -Has lower extremity edema, on diuresis Status: Acute Qualifiers: Affected thrombotic vein of extremity: unspecified vein of extremity Chronicity: acute DVT location: lower extremity Laterality: left Qualified Code(s): I82.402 - Acute embolism and thrombosis of unspecified deep veins of left lower extremity (3) Cavitary lesion of lung: -noted on imaging; will need to discuss with family if wanting to pursue further workup for this -Large cavitary lesion involving right upper lobe noted on CT chest -We will likely need further evaluation of this with possible bronchoscopy as differential includes possible infectious process versus neoplasm -Will cover with anti-infective agents in the interim including azithromycin for possible mycobacterial infection and fluconazole for antifungal coverage -Order QuantiFERON to rule out TB -Order sputum culture with gram stain Status: Acute (4) Acute cystitis with hematuria: -UA indicative of infection -associated sepsis as indicated by leukocytosis, tachycardia, tachypnea, lactate > 2 -f/u blood and urine cx -on Zosyn -IVF hydration -has Stinson catheter in place, assess daily for removal -Question of possible moderate to severe left hydronephrosis on CT, will evaluate this further with a dedicated CT of the abdomen and pelvis Status: Acute (5) Altered mental status: -likely secondary to complicated UTI as noted -fall precautions -re-orient as needed, 1:1 monitoring if needed -CT head with noted moderate hydrocephalus, partially calcified mass in posterior fossa including in medulla and inferior cerebellum in background of mild atrophy and chronic ischemic disease. May need further imaging of this including MRI. May be contributing to mental status change -baseline is unclear but per family is typically alert, conversant, oriented -will request ST evaluation for swallow evaluation and cognitive testing; has noted difficulty with swallowing medications Status: Acute Qualifiers: Altered mental status type: delirium Qualified Code(s): R41.0 - Disorientation, unspecified (6) Sepsis: -as noted above -secondary to UTI -trend WBC -close monitoring of vital signs Status: Acute Qualifiers: Acute renal failure type: unspecified Sepsis acute organ dysfunction status: with acute organ dysfunction Sepsis type: sepsis due to unspecified organism Severe sepsis acute organ dysfunction type: acute renal failure Severe sepsis shock status: unspecified Qualified Code(s): A41.9 - Sepsis, unspecified organism; R65.20 - Severe sepsis without septic shock; N17.9 - Acute kidney failure, unspecified (7) Bilateral lower extremity edema: -significant LE edema part of which is likely due to poor nutrition status, need to r/o VTE and evaluate for CHF -Echo and venous duplex ordered -trial of diuresis, SEVERO hose if possible, LE elevation -[id number] Status: Acute (8) Hypoxia: -not oxygen dependent at baseline, denies underlying respiratory conditions -supplemental oxygen as needed -monitor respiratory status -ABG noted with mild hypoxia Status: Acute (9) Polycythemia: -Noted on CBC, no baseline labs to compare -Daily CBC -Request peripheral smear -Could be related to hypoxia versus malignancy versus dehydration given chem istry Status: Acute (10) Physical deconditioning: -unclear functional baseline -fall precautions -PT/OT evaluations once able to participate Status: Acute (11) Uterine prolapse: -total uterine prolapse on examination -Injection Moulding Machine Operator consult by Dr. Carr appreciated Status: Acute (12) Infestation by maggots: -noted on presentation in ED, quite unkempt, disheveled and soiled -Per discussion with other family members they will work on alternative disp osition as current home situation is unsuitable Status: Acute Additional A&P Information -Advanced age -BP improved; continue to monitor vital signs, on BB -DVT ppx not needed as on therapeutic Lovenox -NPO due to noted significant difficulty swallowing, confusion -per discussion with family, priority is keeping patient comfortable but want to continue AC and antibiotics for now to see if any improvement. Report that patient would not want aggressive measures or extensive workup for things like complicated infection or maligancy -Dispo: family working on alternative living arrangements; spoke with GD Chayafederico Rosedominic ([phone]). Spoke to daughter in law Xi and son Bryon, seem to leaning more towards comfort measures -Code status: DNR/DNI Attestations Medical Necessity Statement*: Patient requires hospitalization for continued broad spectrum anti-infective coverage, therapeutic anticoagulation given acute bilateral PE, left lower extremity DVT, further work-up for possible hydronephrosis. Time Spent in Patient Care: Greater than 35 minutes (>than 50% of time spent in counselling and/or direct pt care on unit) . Coding Level of Care Code Acute Dough Cutting Machine Operator for Chg Fwd Exam Comprehensive Diagnoses Pulmonary emboli I26.99 Acute cor pulmonale presence: without acute cor pulmonale Chronicity: acute Pulmonary embolism type: unspecified DVT (deep venous thrombosis) I82.402 Affected thrombotic vein of extremity: unspecified vein of extremity Chronicity: acute DVT location: lower extremity Laterality: left Cavitary lesion of lung J98.4 Acute cystitis with hematuria N30.01 Altered mental status R41.0 Altered mental status type: delirium Sepsis A41.9; R65.20; N17.9 Acute renal failure type: unspecified Sepsis acute organ dysfunction status: with acute organ dysfunction Sepsis type: sepsis due to unspecified organism Severe sepsis acute organ dysfunction type: acute renal failure Severe sepsis shock status: unspecified Bilateral lower extremity edema R60.0 Hypoxia R09.02 Polycythemia D75.1 Physical deconditioning R53.81 Uterine prolapse N81.4 Infestation by maggots B87.9
[2019-12-02 09:22] LABS: Alanine Aminotransferase 12 U/L (0-33); Albumin Level 3.1 g/dL (3.5-5.2); Alkaline Phosphatase 126 IU/L (35-105); Anion Gap 19.5 (5-19); Blood Urea Nitrogen 28 mg/dL (8-23); Calcium 11.1 mg/dL (8.5-10.5); Carbon Dioxide 23 mmol/L (22-29); Chloride 107 mmol/L (98-107); Glucose 90 mg/dL (65-115); Magnesium 2.2 mg/dL (1.7-2.3); Osmolality Calculated 299 mOsm/kg (285-295); Potassium 3.5 mmol/L (3.5-5.1); Sodium 146 mmol/L (136-145); Total Bilirubin 0.8 mg/dL (0.15-1.2); Total Protein 6.1 g/dL (6.6-8.7)
[2019-12-02 09:31] LABS: Aspartate Amino Transferase 33 U/L (0-32)
--- NOTE | 2019-12-02 09:43 | PC.CHAP ---
Pastoral Care Encounter/Spiritual Assessment Type of Contact [] Declined audit analyst visit [] Patient/Family/Request visit [] Outpatient visit [] Follow-up visit [] Physician referral [] Code/Alert [x] Routine visit [] Staff referral [] Actively dying [] Patient sleeping [] Family support [] [] Out of room [] Palliative care [] [] Receiving care in room [] Pre-surgical visit [] Trauma [] Long length of stay [] ICU visit [] Other: Relational/Emotional Strength [] Patient feels connected with others/family/visitors/staff [] Distress [] Loneliness/isolation [] Abandonment Spirituality of Patient [] Person of Kamini [] Attends Episcopal of their Kamini [] Believes in Prayer [] Reads Bible or Rastafarian materials [] There are Spiritual issues to be addressed Gizzard Peeler Interventions [x] Prayer [] Active listening [] Non-anxious presence [] Spiritual/emotional support [] Crisis/trauma care [] Spiritual counseling [] Bereavement support [] Provided bereavement packet [] Provided Bible/devotional materials [] Provided toy/stuffed animal, coloring book to patient or family member [] Provided Communion [] Anointing/[place] [] Salvation [x] Completed spiritual assessment [] Other: Impact on Illness or Injury [] Angry [] Fearful [] Anxious [] Often cries [] Exhaustion [] Unable to work [] Unable to attend yazidi [] Unable to walk/stand [] Unable to read [] Unable to drive [] Unable to eat/drink [] Unable to sleep [] Unable to be with family [] Patient intubated [] Other: Summary Patient resting well. States she is fine. Request given Gizzard Peeler by RN to visit often and perhaps set with her. Patient drifted off to sleep while praying. Very sweet lady, great hearing. Time spent with patient 15 min
[2019-12-02] MEDS: bumetanide 0.25 mg/mL SDV 10 mL 1 MG IV (10:02)
[2019-12-02] MEDS: cholecalciferol (vitamin D3) 1,000 unit Tablet 2000 UNIT PO (10:02)
[2019-12-02] MEDS: enoxaparin 80 mg/0.8 mL Syringe 70 MG SUBCUT ×2 (10:03→20:32)
[2019-12-02] MEDS: cyanocobalamin 1,000 mcg/mL SDV 1000 MCG IM (10:03)
[2019-12-02] MEDS: metoprolol tartrate 25 mg Tablet PO (10:04)
[2019-12-02] MEDS: morphine 4 mg/mL SDV 1 mL 2 MG IVP (10:22)
[2019-12-02] MEDS: LORazepam 2 mg/mL INJ 1 mL 1 MG IVP (10:23)
[2019-12-02 10:30] LABS: LAB Peripheral Smear Sent for Review
[2019-12-02] MEDS: fluconazole premix 400 MG/200 ML PIGGYBACK 200 MG IV (12:19)
[2019-12-02] MEDS: azithromycin 500 MG in sodium chloride 0.9% 250 ML 250 MG IV (12:20)
--- NOTE | 2019-12-02 14:59 | PC.NURSE ---
Patient family spoken to per Dr. Villanueva, comfort care was their wishes, and they stated that would be her wishes as well. Patient became restless and stated she had some pain this am, was given Morphine 1mg and Ativan 1mg IV at 1000. Patient has been unable to swallow medication and any fluids. Patient Urine is a tea color, dobson remains patent. Patient's resp increasingly labored, and her saturation level is 95-96% on 3l nc. Patient is receiving saturation monitoring. HR has been 100-115. At this time patient appears to be in no pain.
--- NOTE | 2019-12-02 16:16 | PC.SLP ---
Pt not able to participate in ASSISTANT CHIEF NURSING OFFICER eval due to decline in condition. Physician aware.
[2019-12-03] VITALS (7 sets, daily range): BP systolic 150; BP diastolic 96; PULSE 83–88; RESP 18; TEMP 37.1; O2SAT 87–97; BMI 19.3
[2019-12-03] MEDS: piperacillin-tazobactam 3.375 GM in sodium chloride 0.9% (plus) 50 ML IV (03:54)
[2019-12-03] MEDS: sodium chloride 0.9% 1,000 ML 100 ML IV (03:54)
[2019-12-03 06:24] LABS: Basophils % 0.2 %; Hematocrit 49.6 % (37.0-47.0); Hemoglobin 15.7 g/dL (11.5-15.3); Lymphocytes # 0.9 10^3/uL (0.8-4.8); Lymphocytes % 7.2 %; Mean Corpuscular HGB Conc 31.7 g/dL (30.0-36.0); Mean Corpuscular Volume 97.8 fL (81-99); Mean Platelet Volume 11.9 fL (7.4-10.4); Monocytes # 0.9 10^3/uL (0.2-0.9); Monocytes % 7.2 %; Neutrophils # 10.6 10^3/uL (1.8-7.7); Neutrophils % 84.4 %; Nucleated Red Blood Cells % 0 %; Platelet Count 205 10^3/cmm (130-400); Red Blood Count 5.07 10^6/uL (4.1-5.3); White Blood Count 12.6 10^3/uL (4.0-10.0)
[2019-12-03 06:44] LABS: Anion Gap 13.6 (5-19); Blood Urea Nitrogen 20 mg/dL (8-23); Calcium 10.9 mg/dL (8.5-10.5); Carbon Dioxide 29 mmol/L (22-29); Chloride 112 mmol/L (98-107); Glucose 100 mg/dL (65-115); Osmolality Calculated 311 mOsm/kg (285-295); Sodium 152 mmol/L (136-145)
[2019-12-03 06:55] LABS: Free T4 Free Thyroxine 1.48 ng/dL (0.82-1.77)
[2019-12-03 07:00] LABS: Potassium 2.6 mmol/L (3.5-5.1)
--- NOTE | 2019-12-03 09:29 | P.PN_ITS ---
Subjective Subjective: Interval history: Required suctioning overnight, seems more awake, oriented to place though not consistently, coughs when sipping on water. Decreasing leukocytosis, improving Hg, renal function normalized. Had 1000 mL urine output overnight. Multiple family members at bedside, reviewed patient's clinical status, had another goals of care discussion. They have decided on transition to comfort measures and we are currently working on hospice. Would like to have patient discharged today if possible. Medications: Reviewed: Yes Medication Review Details: Active Medications Generic Name Dose Route Start Last Admin Trade Name Freq PRN Reason Stop Dose Admin Acetaminophen 650 mg 12/01/19 13:51 Tylenol PO Q6H PRN Mild/Mod Pain Or Temp >/= 101 Bumetanide 1 mg 12/02/19 09:10 12/02/19 10:02 Bumex IV 1 mg DAILY MARIJA Administration Cyanocobalamin 1,000 mcg 12/02/19 09:15 12/02/19 10:03 Vitamin B-12 IM 1,000 mcg DAILY MARIJA Administration Enoxaparin Sodium 70 mg 12/02/19 09:00 12/02/19 20:32 Lovenox SUBCUT 70 mg Q12H MARIJA Administration Dextrose/Sodium Ch loride 1,000 mls @ 50 ml s/hr 12/01/19 16:02 12/02/19 18:03 Dextrose 5%-Sod Chloride 0.9% IV 75 mls/hr .Q20H MARIJA Administration Piperacillin Sod/T azobactam 50 mls @ 12.5 mls /hr 12/01/19 19:00 12/03/19 03:54 Sod 3.375 gm/ So dium Chloride IV 12.5 mls/hr Q8H MARIJA Administration Protocol Azithromycin 500 m g/ Sodium 250 mls @ 250 mls /hr 12/02/19 10:00 12/02/19 12:20 Chloride IV 250 mls/hr Q24H MARIJA Administration Protocol Fluconazole 400 mg in 200 mls @ 200 mls/hr 12/02/19 10:00 12/02/19 12:19 Diflucan Premix IV 200 mls/hr Q24H MARIJA Administration Lorazepam 1 mg 12/02/19 11:56 Ativan IVP Q4H PRN ANXIETY Metoprolol Tartrat e 25 mg 12/01/19 19:45 12/02/19 17:17 Lopressor PO Not Given BID MARIJA Morphine Sulfate 2 mg 12/01/19 13:51 12/02/19 10:22 Morphine IVP 2 mg Q4H PRN Administration SEVERE PAIN Ondansetron HCl 4 mg 12/01/19 13:51 Zofran IVP Q6H PRN NAUSEA AND VOMITI NG Vitamin D 2,000 unit 12/02/19 09:15 12/02/19 10:02 Vitamin D3 PO 2,000 unit DAILY MARIJA Administration No Known Allergies Allergy (Verified 12/01/19 09:38) Vitals/I&O/Wt Last Vital Signs Temp 98.8 F 12/02/19 15:46 Pulse 88 12/03/19 04:00 Resp 18 12/03/19 00:00 BP 150/96 12/02/19 15:46 Pulse Ox 87 L 12/03/19 08:57 12/02/19 12/03/19 12/03/19 22:59 06:59 14:59 Intake Total 1997.5 / 3097.5 0 / 3097.5 Output Total 1800 / 1800 1000 / 2800 Balance 197.5 / 1297.5 -1000 / 297.5 Weight last 48 hrs Weight 55.99 kg Physical Exam Const: COMMON NORMALS: no acute distress and alert GENERAL APPEARANCE: cooperative, comfortable, frail appearing and appears older than stated age NUTRITIONAL APPEARANCE: thin ORIENTATION/CONSCIOUSNESS: Yes confused OTHER: -sitting up in bed HENMT: COMMON NORMALS: normocephalic, atraumatic and hearing grossly normal bilaterally HEAD & SCALP: normocephalic and atraumatic MOUTH: moist mucous membranes abnormal Details: cracked TEETH & GINGIVA: Yes dentures Eye: COMMON NORMALS: Equal, round and reactive pupils present, EOMs intact bilaterally and conjunctivae normal CONJUNCTIVA: Yes conjunctivae normal PUPIL: Yes Equal, round and reactive pupils present Neck/C-Spine: COMMON NORMALS: full ROM GENERAL: Yes normal visual inspection and Yes trachea midline Chest: CHEST: Yes Symmetrical chest wall rise Resp: COMMON NORMALS: normal respiratory effort, No retractions, No use of accessory muscles and clear to auscultation bilaterally EFFORT & INSPECTION: Yes able to speak in complete sentences, Yes symmetric chest movement and Yes tachypneic AUSCULTATION: clear to auscultation bilaterally OTHER: -on 3 L NC Cardio: COMMON NORMALS: regular rate, regular rhythm, S1 normal heart sound present, S2 normal heart sound present and No murmurs present (Cardio) RATE: regular rate RHYTHM: regular rhythm HEART SOUNDS: S1 normal heart sound present and S2 normal heart sound present GI: COMMON NORMALS: Normal to inspection, nondistended, normoactive bowel sounds present, Soft to palpation and non-tender PALPATION: Yes Soft to palpation RECTAL EXAM: visual inspection normal : BLADDER/KIDNEY EXAM: Yes catheter in place Catheter type (Female): urethral PELVIC SUPPORT: Uterine prolapse: 3rd degree (total) Extremity: NARRATIVE EXTREMITY EXAM: -noted pitting edema of bilateral LEs including feet (1+) Neuro: SENSORIUM/ORIENTATION: Yes alert and Yes Orientation impaired SPEECH: Other neuro speech findings (Speech is clearer today) OTHER: -due to altered mental status, unable to participate in full neuro exam Psych: COMMON NORMALS: cooperative, normal affect and speech normal SPEECH: Yes normal speech THOUGHT PROCESS: confused Skin: COMMON NORMALS: no rashes or lesions noted, no jaundice, no petechiae and no mottling NARRATIVE SKIN EXAM: -diffuse lesions, non-erythematous, non- pruritic, no open lesions GENERAL SKIN EXAM: no rashes or lesions noted NAILS: discolored Urinary Catheter Management^: Stinson: Cath Placed During This Visit: yes Urethral Indwelling: Yes Reason for Continuing Indwelling Catheter: Acute Urinary Retention or Obstructio n Urinary Catheter Date of Insertion: 12/01/19 Urinary Catheter Time of Insertion: 13:00 Data : 12/03/19 05:41 12/03/19 05:41 Micro: Microbiology 12/01/19 10:07 Blood Culture - Preliminary Blood Gram positive cocci 12/01/19 12:42 Urine Culture - Preliminary Urine,Clean Catch Gram Negative Rods 12/01/19 10:13 Blood Culture - Preliminary Blood NEGATIVE TO DATE A&P Assessment and plan (1) Pulmonary emboli: -Noted evidence of bilateral lower lobe pulmonary emboli, greater on the right compared to the left on CTA, no evidence of right ventricular heart strain -Is already on anticoagulation with therapeutic Lovenox -Echo: EF=57%, G1DD, no RWMA, trace TR -High suspicion for underlying malignancy given noted large right upper lobe cavitary lesion and previously noted partially calcified mass in posterior fossa on CT head Status: Acute Qualifiers: Acute cor pulmonale presence: without acute cor pulmonale Chronicity: acute Pulmonary embolism type: unspecified Qualified Code(s): I26.99 - Other pulmonary embolism without acute cor pulmonale (2) DVT (deep venous thrombosis): -venous duplex: non-compressible veins from CFV to femoral to popliteal and peroneal; large Martinez's cyst -Already on therapeutic anticoagulation with Lovenox -Has lower extremity edema, on diuresis Status: Acute Qualifiers: Affected thrombotic vein of extremity: unspecified vein of extremity Chronicity: acute DVT location: lower extremity Laterality: left Qualified Code(s): I82.402 - Acute embolism and thrombosis of unspecified deep veins of left lower extremity (3) Cavitary lesion of lung: -noted on imaging; will need to discuss with family if wanting to pursue further workup for this -Large cavitary lesion involving right upper lobe noted on CT chest -We will likely need further evaluation of this with possible bronchoscopy as differential includes possible infectious process versus neoplasm -Will cover with anti-infective agents in the interim including azithromycin for possible mycobacterial infection and fluconazole for antifungal coverage -pending QuantiFERON to rule out TB -Order sputum culture with gram stain Status: Acute (4) Acute cystitis with hematuria: -UA indicative of infection -associated sepsis as indicated by leukocytosis, tachycardia, tachypnea, lactate > 2. More hemodynamically stable, decreasing leukocytosis -blood cx: 1/3 bottles + for GPC, likely contaminant -urine cx: GNRs, pending ID & sensitivity -on Zosyn -IVF hydration -has Stinson catheter in place, assess daily for removal -Question of possible moderate to severe left hydronephrosis on CT, per family, will not evaluate this further Status: Acute (5) Altered mental status: -likely secondary to complicated UTI as noted -fall precautions -re-orient as needed, 1:1 monitoring if needed -CT head with noted moderate hydrocephalus, partially calcified mass in posterior fossa including in medulla and inferior cerebellum in background of mild atrophy and chronic ischemic disease. May need further imaging of this including MRI. May be contributing to mental status change -baseline is unclear but per family is typically alert, conversant, oriented -has noted difficulty with swallowing medications Status: Acute Qualifiers: Altered mental status type: delirium Qualified Code(s): R41.0 - Disorientation, unspecified (6) Sepsis: -as noted above -secondary to UTI -trend WBC -close monitoring of vital signs Status: Acute Qualifiers: Acute renal failure type: unspecified Sepsis acute organ dysfunction status: with acute organ dysfunction Sepsis type: sepsis due to unspecified organism Severe sepsis acute organ dysfunction type: acute renal failure Severe sepsis shock status: unspecified Qualified Code(s): A41.9 - Sepsis, unspecified organism; R65.20 - Severe sepsis without septic shock; N17.9 - Acute kidney failure, unspecified (7) Bilateral lower extremity edema: -significant LE edema part of which is likely due to poor nutrition status, improving -Echo and venous duplex as noted above -on diuresis, LE elevation -BNP-1660 Status: Acute (8) Hypoxia: -not oxygen dependent at baseline, denies underlying respiratory conditions -supplemental oxygen as needed -continue to monitor respiratory status -ABG noted with mild hypoxia Status: Acute (9) Polycythemia: -Noted on CBC, no baseline labs to compare -Daily CBC; improving -pending peripheral smear -Could be related to hypoxia versus malignancy versus dehydration given chemistry Status: Acute (10) Physical deconditioning: -unclear functional baseline -fall precautions -not able to participate so no PT/OT evaluations Status: Acute (11) Uterine prolapse: -total uterine prolapse on examination -Computing Architect consult by Dr. Carr appreciated Status: Acute (12) Infestation by maggots: -noted on presentation in ED, quite unkempt, disheveled and soiled -Per discussion with other family members they will work on alternative disposition as current home situation is unsuitable Status: Acute Additional A&P Information -Advanced age -BP improved; continue to monitor vital signs, on BB -DVT ppx not needed as on therapeutic Lovenox -NPO due to noted significant difficulty swallowing, confusion, high risk of aspiration -per discussion with family, priority is keeping patient comfortable but want to continue AC and antibiotics for now to see if any improvement. Report that patient would not want aggressive measures or extensive workup for things like complicated infection or maligancy -Dispo: family working on alternative living arrangements; spoke with MOMO Barger ([phone]). Spoke to multiple family members at bedside including daughter in law Xi and son Bryon, agreed to transition to comfort measures. Working on hospice arrangements -Code status: DNR/DNI Attestations Medical Necessity Statement*: Discharge today once hospice arranged Time Spent in Patient Care: 16 - 35 minutes (>than 50% of time spent in counselling and/or direct pt care on unit) . 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 [employer] Fwd Exam Comprehensive Diagnoses Pulmonary emboli I26.99 Acute cor pulmonale presence: without acute cor pulmonale Chronicity: acute Pulmonary embolism type: unspecified DVT (deep venous thrombosis) I82.402 Affected thrombotic vein of extremity: unspecified vein of extremity Chronicity: acute DVT location: lower extremity Laterality: left Cavitary lesion of lung J98.4 Acute cystitis with hematuria N30.01 Altered mental status R41.0 Altered mental status type: delirium Sepsis A41.9; R65.20; N17.9 Acute renal failure type: unspecified Sepsis acute organ dysfunction status: with acute organ dysfunction Sepsis type: sepsis due to unspecified organism Severe sepsis acute organ dysfunction type: acute renal failure Severe sepsis shock status: unspecified Bilateral lower extremity edema R60.0 Hypoxia R09.02 Polycythemia D75.1 Physical deconditioning R53.81 Uterine prolapse N81.4 Infestation by maggots B87.9
--- NOTE | 2019-12-03 11:07 | P.DS_ITS ---
Discharge Providers Date of Admission: 12/01/19 13:51 Date of Discharge: December 03, 2019 Attending Provider at Admission: Kay Campbell MD Attending Provider at Discharge: Kay Campbell MD Primary Care Provider: None Diagnoses at Discharge Discharge Diagnosis (1) Pulmonary emboli: Status: Acute Qualifiers: Acute cor pulmonale presence: without acute cor pulmonale Chronicity: acute Pulmonary embolism type: unspecified Qualified Code(s): I26.99 - Other pulmonary embolism without acute cor pulmonale (2) DVT (deep venous thrombosis): Status: Acute Qualifiers: Affected thrombotic vein of extremity: unspecified vein of extremity Chronicity: acute DVT location: lower extremity Laterality: left Qualified Code(s): I82.402 - Acute embolism and thrombosis of unspecified deep veins of left lower extremity (3) Cavitary lesion of lung: Status: Acute (4) Acute cystitis with hematuria: Status: Acute (5) Altered mental status: Status: Acute Qualifiers: Altered mental status type: delirium Qualified Code(s): R41.0 - Disorientation, unspecified (6) Sepsis: Status: Acute Qualifiers: Acute renal failure type: unspecified Sepsis acute organ dysfunction status: with acute organ dysfunction Sepsis type: sepsis due to unspecified organism Severe sepsis acute organ dysfunction type: acute renal failure Severe sepsis shock status: unspecified Qualified Code(s): A41.9 - Sepsis, unspecified organism; R65.20 - Severe sepsis without septic shock; N17.9 - Acute kidney failure, unspecified (7) Bilateral lower extremity edema: Status: Acute (8) Hypoxia: Status: Acute (9) Polycythemia: Status: Acute (10) Physical deconditioning: Status: Acute (11) Uterine prolapse: Status: Acute (12) Infestation by maggots: Status: Acute Reason for Visit Reason for Visit: SOB/ HTN Hospital Course Hospital Course: Patient was admitted to the medical surgical floor and started on therapeutic anticoagulation for treatment of left lower extremity DVT and bilateral PE. She was started on empiric IV antibiotics secondary to UTI with associated sepsis. She has been noted to have a cavitary lesion in the right upper lobe on imaging which is possibly infectious versus neoplastic in etiology. CT scan of the head showed moderate hydrocephalus with a partially calcified mass in the posterior fossa. In light of VTE, polycythemia and imaging findings, malignancy is quite likely. However following discussion with the patient's family, they have decided against further work-up or aggressive care given patient's previously expressed wishes not to have aggressive measures initiated. Patient's cognition has remained impaired throughout her hospital stay and I am strongly suspicious that she has some degree of dementia at baseline. Stinson catheter was placed in the ER and will remain in place even on discharge. I have had a goals of care discussion with patient's family specifically her son Bryon and [id number] Xi and family is in agreement to transition patient to comfort measures. Hospice at a facility ([facility] in [place], [place]) has been arranged, appropriate DME and meds in place. Patient has had significant difficulty swallowing and is at high risk for aspiration which family is aware of but her intake can be continued for comfort as tolerated. Physical Exam Const: COMMON NORMALS: no acute distress and alert GENERAL APPEARANCE: cooperative, comfortable, frail appearing and appears older than stated age NUTRITIONAL APPEARANCE: thin ORIENTATION/CONSCIOUSNESS: Yes confused OTHER: -sitting up in bed HENMT: COMMON NORMALS: normocephalic, atraumatic and hearing grossly normal bilaterally HEAD & SCALP: normocephalic and atraumatic MOUTH: moist mucous membranes abnormal Details: cracked TEETH & GINGIVA: Yes dentures Eye: COMMON NORMALS: Equal, round and reactive pupils present, EOMs intact bilaterally and conjunctivae normal CONJUNCTIVA: Yes conjunctivae normal PUPIL: Yes Equal, round and reactive pupils present Neck/C-Spine: COMMON NORMALS: full ROM GENERAL: Yes normal visual inspection and Yes trachea midline Chest: CHEST: Yes Symmetrical chest wall rise Resp: COMMON NORMALS: normal respiratory effort, No retractions, No use of accessory muscles and clear to auscultation bilaterally EFFORT & INSPECTION: Yes able to speak in complete sentences, Yes symmetric chest movement and Yes tachypneic AUSCULTATION: clear to auscultation bilaterally OTHER: -on 2 L NC Cardio: COMMON NORMALS: regular rate, regular rhythm, S1 normal heart sound present, S2 normal heart sound present and No murmurs present (Cardio) RATE: regular rate RHYTHM: regular rhythm HEART SOUNDS: S1 normal heart sound present and S2 normal heart sound present GI: COMMON NORMALS: Normal to inspection, nondistended, normoactive bowel sounds present, Soft to palpation and non-tender PALPATION: Yes Soft to palpation RECTAL EXAM: visual inspection normal : BLADDER/KIDNEY EXAM: Yes catheter in place Catheter type (Female): urethral PELVIC SUPPORT: Uterine prolapse: 3rd degree (total) Extremity: NARRATIVE EXTREMITY EXAM: -noted pitting edema of bilateral LEs including feet (1+) Neuro: SENSORIUM/ORIENTATION: Yes alert and Yes Orientation impaired SPEECH: Other neuro speech findings (Speech is clearer today) OTHER: -due to altered mental status, unable to participate in full neuro exam Psych: COMMON NORMALS: cooperative, normal affect and speech normal SPEECH: Yes normal speech THOUGHT PROCESS: confused Skin: COMMON NORMALS: no rashes or lesions noted, no jaundice, no petechiae and no mottling NARRATIVE SKIN EXAM: -diffuse lesions, non-erythematous, non-pruritic, no open lesions GENERAL SKIN EXAM: no rashes or lesions noted NAILS: discolored Urinary Catheter Management^: Stinson: Cath Placed During This Visit: yes Urethral Indwelling: Yes Reason for Continuing Indwelling Catheter: Acute Urinary Retention or Obstruction Urinary Catheter Date of Insertion: 12/01/19 Urinary Catheter Time of Insertion: 13:00 Discharge Data Data Completed and Pending: Completed Studies During Hospitalization Category Date Time Status CT angio chest PE protcl 15303 Rout ine Cat Scan 12/01/19 20:[address] head wo con* 7 0450 Urgent Cat Scan 12/01/19 09:37 Completed XR chest 1V cody ble 67910 Urgent Exams 12/01/19 09:37 Completed XR chest 2V* 7104 6 Urgent Exams 12/01/19 10:37 Completed XR hip LT 2-3V wo /w pel* 59189 Urge nt Exams 12/01/19 12:46 Completed CV echo complete* [id number] Routine Ultrasound 12/02/19 07:00 [place] [id number] Routin e Ultrasound 12/02/19 07:00 Completed Pending at discharge Category Date Time Status Blood Culture Sta t Lab 12/01/19 10:07 Results Eghnhfiinxy-LT-Lm ld Plus Stat Lab 12/02/19 10:55 Received Urine Culture Sta t Lab 12/01/19 12:42 Results Labs from last 24 hours 12/03/19 12/03/19 12/03/19 05:41 05:41 05:41 WBC 12.6 H RBC 5.07 Hgb 15.7 H Hct 49.6 H MCV 97.8 MCH 31.0 MCHC 31.7 RDW 15.0 Plt Count 205 MPV 11.9 H Neut % (Auto) 84.4 Lymph % (Auto) 7.2 [place] % (Auto) 7.2 Eos % (Auto) 0.0 Baso % (Auto) 0.2 Neut # (Auto) 10.6 H Lymph # (Auto) 0.9 [place] # (Auto) 0.9 Eos # (Auto) 0.0 Baso # (Auto) 0.0 Nucleated RBC % (a uto) 0 Nucleated RBCs # 0.0 Sodium 152 H Potassium 2.6 L* Chloride 112 H Carbon Dioxide 29 Anion Gap 13.6 BUN 20 Creatinine 0.5 Glucose 100 Calculated Osmolal ity 311 H Calcium 10.9 H Free T4 1.48 Vitals: Last Vital Signs Temp 98.8 F 12/03/19 08:00 Pulse 88 12/03/19 08:00 Resp 18 12/03/19 08:00 BP 150/96 12/03/19 08:00 Pulse Ox 87 L 12/03/19 08:57 Discharge Plan Discharge Patient Disposition: Hospice - Medical Facility Condition: Fair Prescriptions: Continued No Known Home Medications RF: 0 Discharge Orders: Discharge Order (Routine); Ordered 12/03/19 Ordered By: Kay Campbell Discharge Diet: As Directed Discharge Activity: Bedrest Discharge Attestations Time Spent in Discharge Care*: greater than 30 min Specific Discharge Activities: Specific discharge activities: educating and/or supporting family/caregiver, discussing with case supervisor/social workers/dc planners, documenting/other paperwork and evaluating patient/reviewing data Status at Discharge: Cognitive status at discharge: moderately impaired cognition , Behavioral status at discharge: cooperative and dependent in ADL's , Functional status at discharge: bed bound Overall status at discharge: patient has a new baseline Quality Metrics Clinical Quality Measures During this hospital stay, did patient experience: None Coding Level of Care Code Acute 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 [facility] Fwd Exam Comprehensive Diagnoses Pulmonary emboli I26.99 Acute cor pulmonale presence: without acute cor pulmonale Chronicity: acute Pulmonary embolism type: unspecified DVT (deep venous thrombosis) I82.402 Affected thrombotic vein of extremity: unspecified vein of extremity Chronicity: acute DVT location: lower extremity Laterality: left Cavitary lesion of lung J98.4 Acute cystitis with hematuria N30.01 Altered mental status R41.0 Altered mental status type: delirium Sepsis A41.9; R65.20; N17.9 Acute renal failure type: unspecified Sepsis acute organ dysfunction status: with acute organ dysfunction Sepsis type: sepsis due to unspecified organism Severe sepsis acute organ dysfunction type: acute renal failure Severe sepsis shock status: unspecified Bilateral lower extremity edema R60.0 Hypoxia R09.02 Polycythemia D75.1 Physical deconditioning R53.81 Uterine prolapse N81.4 Infestation by maggots B87.9
--- NOTE | 2019-12-03 11:17 | PC.NURSE ---
Patient awake this morning, and talking some. She smiles and has been pleasant. Patient's family is here at bedside. Plan is to d/c patient to Hospice house and family to take patient in private vehicle.
[2019-12-06 13:46] LABS: Quantiferon Mitogen 0.58 IU/mL; Quantiferon Nil 0.01 IU/mL; Quantiferon TB Gold NEGATIVE (NEGATIVE)
== END 2019-12-03 13:00 | disposition hospice, inpatient (51) | DRG 871 ==
LOC: ER 14:32 → MEDSURG 14:42
PROVIDERS: Physician Assistant; Admitting Provider Family Medicine; Visit Provider Family Medicine
DX: A41.9 Sepsis, unspecified organism (principal); I26.99 Other pulmonary embolism without acute cor pulmonale; N30.01 Acute cystitis with hematuria; N17.9 Acute kidney failure, unspecified; Z86.718 Personal history of other venous thrombosis and embolism; J98.4 Other disorders of lung; Z51.5 Encounter for palliative care; R65.20 Severe sepsis without septic shock; R09.02 Hypoxemia; B87.9 Myiasis, unspecified; D75.1 Secondary polycythemia; F03.90 Unspecified dementia, unspecified severity, without behavioral disturbance, psychotic disturbance, mood disturbance, and anxiety; Z87.891 Personal history of nicotine dependence
CPT/HCPCS: 12345; 36415; 36600; 70450; 71045; 71046; 71275; 73502; 80048; 80051; 80053; 80306; 80500; 81001; 82306; 82550; 82607; 82746; 82810; 83036; 83605; 83735; 83880; 83986; 84439; 84443; 84484; 85025; 85378; 85610; 86480; 87040; 87077; 87086; 87186; 87205; 93005; 93306; 93970; 96372; 96375; 99284; J0456; J1450; J1650; J2060; J2270; J2543; J3420; J3490; J7030; J7050; Q9967